=== PATIENT | female | born 1950 | race Caucasian/White ===

== ENCOUNTER 2022-03-20 14:51 | Emergency (ER) | payer BC, MEDICARE, SELFPAY ==
[2022-03-20 16:00] VITALS: BP 147/76; PULSE 92; RESP 18; TEMP 37.3; O2SAT 100
--- NOTE | 2022-03-20 16:31 | ED.ANIMALBIT ---
HPI - Animal Bite General Chief Complaint: Animal Bite Stated Complaint: Animal Bite Lt Hand Time Seen by Provider: 03/20/22 16:31 Source: patient Mode of arrival: ambulatory Limitations: no limitations History of Present Illness HPI narrative: 71-year-old female presented for complaint multiple cat scratches/bites on the right forearm and left hand. The cat attacked her around 0130 today. She applied hydrogen peroxide and Neosporin, wrapped the site but continues to report pain to the sites today. Bleeding is controlled. She has some redness to the right forearm and left hand/ knuckles with swelling. She denies numbness, tingling, weakness of the extremities. This was her domestic cat and she states it is up-to-date on vaccinations Related Data Home Medications Medication Instructions Recorded Confirmed estradiol 0.5 mg/0.5 gram (0.1 %) 0.5 mg topical DAILY 03/20/22 03/20/22 transdermal gel packet lisinopril 10 mg tablet 10 mg PO DAILY 03/20/22 03/20/22 progesterone micronized 200 mg See Rx Instructions .Route .COMPLEX 03/20/22 03/20/22 capsule Allergies Allergy/AdvReac Type Severity Reaction Status Date / Time No Known Allergies Allergy Verified 03/20/22 15:58 Review of Systems Review of Systems: CONSTITUTIONAL: Denies body aches, fever, chills, or sweats. EYES: Denies visual changes, redness, or discharge. ENT: Denies rhinorrhea, congestion CARDIOVASCULAR: Denies chest pain, palpitations, or edema. RESPIRATORY: Denies cough or dyspnea. GASTROINTESTINAL: Denies abdominal pain, nausea, vomiting, or diarrhea. SKIN: per HPI MUSCULOSKELETAL: Denies back pain, joint pain, or myalgia. NEUROLOGIC: Denies headache, numbness, tingling, or weakness. PMFSH Comments At time of signature, I have reviewed and agree with nursing past medical, surgical, social and family history unless otherwise noted. Please see nursing chart for further information. There is no relevant family history pertinent to the presenting complaint Exam Narrative: GENERAL: Well-appearing HEAD: Normocephalic, atraumatic. EYES: conjunctivae clear, and EOMI. ENT: Mucous membranes moist. Oropharynx without edema, erythema or lesions. CHEST: Clear to auscultation. HEART: Regular rate and rhythm. SKIN: Warm, dry. Approximately 4 large linear lacerations to the right forearm ulnar side with multiple smaller punctures and abrasions; Right medial elbow with laceration; Left hand MCP with 2 puncture sites and approx 1cm linear laceration to 3rd metacarpal with moderate redness and swelling to MCPs. Purulent material expressed from the right volar forearm puncture sites and the left metacarpal site. Moderate erythema and swelling to the forearm appears circumferential and erythema streaking to right upper arm. Bilateral hands/fingers with normal ROM, strength and sensation. Reports pain with movement. Radial pulses equal bilaterally. NEURO: Alert and oriented x3. Course Course Emergency Course: Patient is aware of diagnosis, understands and agrees to treatment plan. Anticipatory guidance given. Portions of this record may have been created with voice recognition software Level of Care: Express Care Visit Vital Signs Vital signs: Vital Signs Temperature 99.1 F 03/20/22 16:00 Pulse Rate 92 03/20/22 16:00 Respiratory Rate 18 03/20/22 16:00 Blood Pressure 147/76 H 03/20/22 16:00 Pulse Oximetry 100 03/20/22 16:00 Oxygen Delivery Room Air 03/20/22 16:00 Temperature 99.1 F 03/20/22 16:00 Pulse Rate 92 03/20/22 16:00 Respiratory Rate 18 03/20/22 16:00 Blood Pressure 147/76 H 03/20/22 16:00 Pulse Oximetry 100 03/20/22 16:00 Oxygen Delivery Room Air 03/20/22 16:00 Reviewed Transfer Transfered to: [address] Transportation: Other (private vehicle) Transfer rationale: Pt is agreeable to transfer. Requests transfer to [facility] via private vehicle. Risks of transportation reviewe
[2022-03-20] MEDS: TETANUS,DIPHTHERIA,AC PERTUSSIS ADULT (0.5 ML) BOOSTRIX IM (16:47)
[2022-03-20] MEDS: cefTRIAXone 500 MG, LIDOCAINE HCL 1% LOCAL INJ 1 ML IM (17:27)
== END 2022-03-20 18:20 | disposition short-term general hospital (02) ==
PROVIDERS: Emergency Provider Nurse Practitioner Family; PCP Internal Medicine
DX: S51.811A Laceration without foreign body of right forearm, initial encounter (principal); S51.011A Laceration without foreign body of right elbow, initial encounter; S61.412A Laceration without foreign body of left hand, initial encounter; L03.113 Cellulitis of right upper limb; W55.01XA Bitten by cat, initial encounter; S50.811A Abrasion of right forearm, initial encounter; S51.831A Puncture wound without foreign body of right forearm, initial encounter; S61.432A Puncture wound without foreign body of left hand, initial encounter; Z23 Encounter for immunization; I10 Essential (primary) hypertension
CPT/HCPCS: 90471; 90715; 96372; 99213; G0463; J0696

== ENCOUNTER 2022-03-20 19:41 | Observation (INO) | payer BC, MEDICARE, SELFPAY ==
[2022-03-20 20:01] VITALS: BP 141/71; PULSE 98; RESP 14; TEMP 37.7; O2SAT 98
[2022-03-20] MEDS: AMPICILLIN SULB 3 GM/NS 100 ML 3 GM/100 ML VIAL IVPB (21:12)
[2022-03-20 21:18] LABS: Basophils Absolute Auto 0.1 K/mm3 (0.0-0.1); Basophils Percent Auto 0.4 % (0.2-1.2); Eosinophils Percent Auto 0.3 % (0-4.4); Hematocrit 36.1 % (37.0-47.0); Hemoglobin 12.2 g/dL (12.0-15.0); Immature Granulocyte Absolute 0.07 K/mm3 (0.00-0.031); Immature Granulocyte Percent A 0.5 % (0-0.5); Lymphocytes Absolute Auto 1.31 K/mm3 (0.9-3.2); Lymphocytes Percent Auto 9.6 % (18.3-44.2); Mean Corpuscular HGB Conc 33.8 g/dl (32-36); Mean Corpuscular Hemoglobin 31.5 pg (26-34); Mean Corpuscular Volume 93.3 fl (80-100); Mean Platelet Volume 9.6 fl (7.4-10.4); Monocytes Absolute Auto 0.8 K/mm3 (0.1-0.6); Monocytes Percent Auto 6.2 % (2.6-8.5); Neutrophils Absolute Auto 11.3 K/mm3 (1.3-6.7); Platelet Count Result 224 k/mm3 (150-375); Red Blood Count 3.87 M/mm3 (4.2-5.4); White Blood Count 13.6 K/mm3 (4.5-10.0)
[2022-03-20 21:27] LABS: Lactic Acid Reflex 0.7 mmol/L (0.7-2.0)
[2022-03-20 21:28] LABS: Alanine Aminotransferase 18 U/L (6-35); Albumin Level 4.3 g/dL (3.5-5.1); Alkaline Phosphatase 64 U/L (38-126); Anion Gap 6 mmol/L (8-16); Aspartate Amino Transferase 27 U/L (14-36); Bilirubin,Total 0.6 mg/dL (0.2-1.3); Blood Urea Nitrogen 22 mg/dL (7-17); Calcium 9.1 mg/dL (8.4-10.2); Carbon Dioxide 26 mmol/L (22-30); Chloride 105 mmol/L (98-107); Estimated CRCL calculation 55 ml/min; Estimated Glomerular Filt Rate > 60; Glucose 122 mg/dL (65-110); Potassium 3.8 mmol/L (3.4-5.0); Sodium 137 mmol/L (137-145)
[2022-03-20 22:48] LABS: Influenza A QL RT-PCR Negative (Negative); Influenza B QL RT-PCR Negative (Negative); SARS-CoV-2 RNA PCR Negative
--- NOTE | 2022-03-20 23:19 | ED.GENADULT ---
HPI - General Adult General Chief complaint: Animal Bite Stated complaint: animal bite Time Seen by Provider: 03/20/22 20:33 History of Present Illness HPI narrative: Patient is a 71-year-old female who presents ER with concerns for infection to bilateral upper extremities. As per evening her cat bit her left hand and then scratched her right arm. In the interim she has developed redness and swelling in the area developed lymphangitic streaking. No fevers or chills. She presented to urgent care recommended she come to the ER for further evaluation. She received ceftriaxone IM 500 mg. Patient reports the cat's vaccinations are up-to-date. Patient has no new numbness or tingling. Related Data Home Medications Medication Instructions Recorded Confirmed estradiol 0.5 mg/0.5 gram (0.1 %) 0.5 mg topical DAILY 03/20/22 03/21/22 transdermal gel packet lisinopril 10 mg tablet 10 mg PO DAILY 03/20/22 03/21/22 progesterone micronized 200 mg See Rx Instructions .Route .COMPLEX 03/20/22 03/21/22 capsule Allergies Allergy/AdvReac Type Severity Reaction Status Date / Time No Known Allergies Allergy Verified 03/21/22 01:35 Review of Systems Review of Systems: All systems reviewed & are unremarkable except as noted in HPI and below Constitutional: Constitutional: Denies chills, Denies fatigue and Denies fever(s) ENT: Denies nasal congestion and Denies sore throat Gastrointestinal: Gastrointestinal: Denies abdominal pain, Denies nausea and Denies vomiting Integumentary/Breasts: Skin/Breast: Denies pruritus and Reports erythema Comments: pain, lacerations PMFSH Family History Family History (Updated 03/21/22 @ 01:42 by Marques Womack RN) Sibling Pancreatic cancer Mother Emphysema lung Father Small cell lung cancer Social History Social History Smoking status: Never smoker Alcohol intake: never Substance use: never Lack of Transportation: No Lack of Food: Never True Current Housing: I Have Housing Concerned About Future Housing: No Difficulty Paying Gas/Electric Bills: No Difficulty Paying for Meds: No Currently Unemployed: No Education: Bachelor's Degree Difficulty w/ Childcare or Family Care: No Spiritual care concerns: No Exam Narrative: GENERAL: Well-appearing, well-nourished, and in no acute distress. HEAD: Normocephalic, atraumatic. ENT: Mucous membranes moist. NECK: Supple. CHEST: Clear to auscultation. No respiratory distress. HEART: Regular rate and rhythm. Normal peripheral pulses. ABDOMEN: Soft, nontender, nondistended. EXTREMITIES: Left hand with puncture wounds consistent with cat bite and the second and third webspaces of the hand with swelling of the knuckles. No purulent drainage. Normal flexion-extension of the fingers. There is lymphangitic streaking. Otherwise normal range of motion of extremities. SKIN: Warm, dry, no rash. Right forearm with multiple scratch wounds from the feline, there is 1 area that is draining some fluid but difficult to tell if it is purulent or not. There is surrounding cellulitis. NEURO: Alert and oriented x3. PSYCH: Normal mood and affect. Course Course Emergency Course: Admit to hospital service for IV antibiotics due to rapid progression of infection. Patient started on Unasyn. Vital Signs Vital signs: Vital Signs Temperature 99.8 F H 03/20/22 20:01 Pulse Rate 98 03/20/22 20:01 Respiratory Rate 14 03/20/22 20:01 Blood Pressure 141/71 H 03/20/22 20:01 Pulse Oximetry 98 03/20/22 20:01 Oxygen Delivery Room Air 03/20/22 20:01 Temperature 98.4 F 03/21/22 01:48 Pulse Rate 76 03/21/22 01:48 Respiratory Rate 20 03/21/22 01:48 Blood Pressure 126/54 L 03/21/22 01:48 Pulse Oximetry 98 03/21/22 01:48 Oxygen Delivery Room Air 03/20/22 20:01 Medical Decision Making Vital Signs Vital Signs: Vital Signs Temperature
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
--- NOTE | 2022-03-21 01:30 | ADMGEN ---
This patient, Rupa Hopkins, was admitted to 2 Medical Room 261-01. Patient/family oriented to hospital policies and general routines including ID bracelet, bed and alarms, visiting hours, pain management, procedures, bathroom and other care routines, personal items, smoking policy, room service/diet, and visiting hours. Information on how to activate the Rapid Response Team has been discussed. Patient/Family are encouraged to report perceived risks to care and to ask questions if they do not understand what they are told or what they should do.
[2022-03-21 01:40] VITALS: BMI 23.8
[2022-03-21 01:48] VITALS: BP 126/54; PULSE 76; RESP 20; TEMP 36.9; O2SAT 98
[2022-03-21] MEDS: AMPICILLIN SULB 3 GM/NS 100 ML 3 GM/100 ML VIAL IVPB ×4 (02:01→20:08)
[2022-03-21 04:00] VITALS: BP 118/54; PULSE 85; RESP 16; TEMP 36.8; O2SAT 98
[2022-03-21 09:59] LABS: Basophils Percent Auto 0.2 % (0.2-1.2); Eosinophils Absolute Auto 0.1 K/mm3 (0-0.3); Eosinophils Percent Auto 0.7 % (0-4.4); Hematocrit 33.7 % (37.0-47.0); Hemoglobin 11.3 g/dL (12.0-15.0); Immature Granulocyte Absolute 0.06 K/mm3 (0.00-0.031); Immature Granulocyte Percent A 0.6 % (0-0.5); Lymphocytes Absolute Auto 1.18 K/mm3 (0.9-3.2); Lymphocytes Percent Auto 12.1 % (18.3-44.2); Mean Corpuscular HGB Conc 33.5 g/dl (32-36); Mean Corpuscular Volume 92.3 fl (80-100); Monocytes Absolute Auto 0.6 K/mm3 (0.1-0.6); Monocytes Percent Auto 6.1 % (2.6-8.5); Neutrophils Absolute Auto 7.8 K/mm3 (1.3-6.7); Neutrophils Percent Auto 80.3 % (45.5-73.1); Platelet Count Result 206 k/mm3 (150-375); Red Blood Count 3.65 M/mm3 (4.2-5.4); Red Cell Distribution Width 12.1 % (11.5-14.5); White Blood Count 9.7 K/mm3 (4.5-10.0)
[2022-03-21 10:00] VITALS: BP 120/52; PULSE 83; RESP 16; TEMP 36.7; O2SAT 98
[2022-03-21 12:00] VITALS: BP 118/58; PULSE 85; RESP 16; TEMP 37; O2SAT 99
[2022-03-21 14:00] VITALS: BP 126/59; PULSE 82; RESP 16; TEMP 37.1; O2SAT 97
[2022-03-21] MEDS: PANTOPRAZOLE 40 MG TABLET PO (14:05)
[2022-03-21] MEDS: ACETAMINOPHEN 325 MG TABLET 650 MG PO (14:14)
--- NOTE | 2022-03-21 16:18 | PM.IMPN ---
Progress Note: A&P Assessment and Plan (1) Cat bite of hand: Qualifiers: Laterality: left Encounter type: initial encounter Qualified Code(s): S61.452A - Open bite of left hand, initial encounter; W55.01XA - Bitten by cat, initial encounter Code(s): S61.459A - Open bite of unspecified hand, initial encounter; W55.01XA - Bitten by cat, initial encounter Status: Acute Assessment and Plan: patient presented to the ED for evaluation after she was bitten and scratched by her indoor cat. Her injuries became more painful, red and swollen. WBC 13 on admission, down to 9.7 today. Afebrile. Continue Unasyn 3 grams Q6 hours. Elevate extremity on 2 pillows K-pad for drainage. If not significant improvement tomorrow will obtain US to rule out abscess. Local wound care supportive care (2) Cat scratch of forearm: Qualifiers: Encounter type: initial encounter Laterality: right Qualified Code(s): S50.811A - Abrasion of right forearm, initial encounter; W55.03XA - Scratched by cat, initial encounter Code(s): S50.819A - Abrasion of unspecified forearm, initial encounter; W55.03XA - Scratched by cat, initial encounter Status: Acute Assessment and Plan: as above (3) Hypertension: Qualifiers: Hypertension type: primary hypertension Qualified Code(s): I10 - Essential (primary) hypertension Code(s): I10 - Essential (primary) hypertension Status: Chronic Assessment and Plan: Continue lisinopril. Monitor vital signs. (4) Gastritis: Qualifiers: Gastritis type: unspecified gastritis Chronicity: acute Gastritis bleeding: without bleeding Qualified Code(s): K29.00 - Acute gastritis without bleeding Code(s): K29.70 - Gastritis, unspecified, without bleeding Status: Acute Assessment and Plan: Diagnosed on 03/15. Avoid NSAIDs Daily protonix PO Plan CODE STATUS: FULL CODE Disposition: observation Discharge plan: home when infections improved. Time Spent With Patient Time with patient: 15 - 25 minutes Subjective Date/time seen: 03/21/22 16:18 Her right arm and left hand are still swollen. The redness appears somewhat improved. She denies discharge. No fevers overnight. No chest pain, SOB, cough, sputum, abd pain, N/V/D, dysuria or paresthesia. Her appetite is good. She had her tetnus shot within the last 2-3 years. Her cat is indoors and she denies concern for rabies exposure. Review of Systems Review of Systems: All systems reviewed & are unremarkable except as noted in HPI and below Exam Narrative: General: No acute distress. Well developed older adult female sitting up in bed. Mental Status/Psych: AAOx4. clear speech. Neutral mood and affect. cooperative. Skin: Left hand mildly hot to touch and tender to palpation, few small scabbed lesions on anterior surface, no discharge, moderate non-pitting edema. Right forearm with multiple linear, scabbed lacerations to lateral anterior to posterior surfaces. Scattered pin-point abrasions noted, hot to touch, moderate edema and erythema, tender to palpation, no discharge. No diaphoresis. HEENT: Normocephalic. Sclera is non-icteric. Pupils equal and round. Oral mucosa moist. Neck: Supple. No JVD. Heart: S1 and S2 regular rate and rhythm. No murmurs, gallops, or rubs auscultated. Chest: Respirations even and unlabored. Lung sounds are clear to auscultation in all lobes bilaterally without wheezes, rhonchi, or rales. Abdomen: Soft, round and non-tender to palpation.? Bowel sounds present in all 4 quadrants.? Extremities:? Grossly normal ROM all extremities. No BLE edema, erythema or calf tenderness. dorsalis pedis pulses +2 bilaterally. Neurological: No focal deficits. cranial nerves 2-12 grossly intact. Objective Data Vital Signs Vital Signs: Vital Signs - 24 hr 03/20/22 20:01 03/21/22 01:48 03/21/22 04:00 Temperature 99.8 F H 98.4 F 98.3 F Pulse R
[2022-03-21] MEDS: NEOMYCIN/POLYMYXIN/BACITRACIN OINTMENT 15 GM TUBE 1 APPLIC TOPICAL (17:13)
[2022-03-21 21:49] VITALS: BP 110/49; PULSE 70; RESP 17; TEMP 37.1; O2SAT 97
[2022-03-22] MEDS: AMPICILLIN SULB 3 GM/NS 100 ML 3 GM/100 ML VIAL IVPB ×2 (03:25→09:01)
[2022-03-22 05:31] LABS: Basophils Percent Auto 0.5 % (0.2-1.2); Eosinophils Absolute Auto 0.1 K/mm3 (0-0.3); Eosinophils Percent Auto 1.7 % (0-4.4); Hematocrit 33.3 % (37.0-47.0); Immature Granulocyte Absolute 0.02 K/mm3 (0.00-0.031); Immature Granulocyte Percent A 0.2 % (0-0.5); Lymphocytes Absolute Auto 1.09 K/mm3 (0.9-3.2); Lymphocytes Percent Auto 12.9 % (18.3-44.2); Mean Corpuscular Hemoglobin 30.8 pg (26-34); Mean Corpuscular Volume 93.3 fl (80-100); Mean Platelet Volume 9.7 fl (7.4-10.4); Monocytes Absolute Auto 0.6 K/mm3 (0.1-0.6); Monocytes Percent Auto 6.6 % (2.6-8.5); Neutrophils Absolute Auto 6.6 K/mm3 (1.3-6.7); Neutrophils Percent Auto 78.1 % (45.5-73.1); Platelet Count Result 188 k/mm3 (150-375); Red Blood Count 3.57 M/mm3 (4.2-5.4); White Blood Count 8.4 K/mm3 (4.5-10.0)
[2022-03-22 05:39] VITALS: BP 112/56; PULSE 78; RESP 18; TEMP 36.7; O2SAT 95
[2022-03-22 05:46] LABS: Anion Gap 3 mmol/L (8-16); Blood Urea Nitrogen 11 mg/dL (7-17); Calcium 8.1 mg/dL (8.4-10.2); Carbon Dioxide 27 mmol/L (22-30); Chloride 106 mmol/L (98-107); Estimated CRCL calculation 55 ml/min; Estimated Glomerular Filt Rate > 60; Glucose 107 mg/dL (65-110); Potassium 3.6 mmol/L (3.4-5.0); Sodium 136 mmol/L (137-145)
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
[2022-03-22] MEDS: NEOMYCIN/POLYMYXIN/BACITRACIN OINTMENT 15 GM TUBE 1 APPLIC TOPICAL (09:01)
== END 2022-03-22 12:05 | disposition home or self-care (01) ==
LOC: ANHED 21:37 → ANH2MED 03-21 00:21
PROVIDERS: Nurse Practitioner Family; Admitting Provider Internal Medicine; Emergency Provider Emergency Medicine; PCP Internal Medicine; Visit Provider Internal Medicine
DX: S61.452A Open bite of left hand, initial encounter (principal); W55.01XA Bitten by cat, initial encounter; L03.113 Cellulitis of right upper limb; B96.89 Other specified bacterial agents as the cause of diseases classified elsewhere; S50.811A Abrasion of right forearm, initial encounter; W55.03XA Scratched by cat, initial encounter; K29.70 Gastritis, unspecified, without bleeding; I10 Essential (primary) hypertension; Z20.822 Contact with and (suspected) exposure to COVID-19; Z79.3 Long term (current) use of hormonal contraceptives; Z79.899 Other long term (current) drug therapy
CPT/HCPCS: 36415; 80048; 80053; 83605; 85025; 87636; 96365; 99285; A9270; G0378; J0295